=== PATIENT | female | born 1990 | race African-American/Black ===

== ENCOUNTER 2016-06-28 11:33 | Emergency (ER) | payer OTHER ==
[2016-06-28] MEDS ORDERED: Fentanyl 100 MCG/2 ML VIAL ONE (12:35)
--- NOTE | 2016-06-28 12:41 | RAD ---
PORTABLE CHEST: History: Chest pain. Comparison: 06-06-16 FINDINGS: There continues to be some hazy opacity in the left lung base although this is improved when compare d to the 06-06-16 exam. Right lung remains clear. Mediport catheter remains in place. IMPRESSION: Some residual hazy opacity in the left lung base, improved when compared to the prior study. POS: [facility]
[2016-06-28 12:55] LABS: ALT (SGPT) 11 U/L (0-55); AST (SGOT) 15 U/L (5-34); Alkaline Phosphatase 62 U/L (40-150); Anion Gap 18 mmol/L (10-20); BUN (Urea Nitrogen) 5 mg/dL (7.0-18.7); Bilirubin, Total 1.8 mg/dL (0.2-1.2); Calc. Creatinine Clearance 0 mL/min (70-130); Calcium 9.4 mg/dL (7.8-10.44); Carbon Dioxide 19 mmol/L (22-29); Chloride 108 mmol/L (98-107); Estimated GFR-MDRD Greater than 90; Globulin 4.2 g/dL (2.4-3.5); Hematocrit 30.4 % (36.0-47.0); Mean Platelet Volume 6.2 fL (7.4-10.4); Protein, Total 8.3 g/dL (6.0-8.3); Red Blood Cell (RBC) Count 4.24 mill/uL (4.20-5.40)
[2016-06-28] MEDS ORDERED: diphenhydrAMINE HCl 50 MG/ML 1 ML VIAL ONE (12:55)
[2016-06-28 12:58] LABS: Troponin I Less than 0.010 ng/mL (< 0.028)
[2016-06-28 13:05] LABS: White Blood Cell (WBC) Count 9.8 thou/uL (4.8-10.8)
[2016-06-28 13:20] LABS: Anisocytosis MODERATE=16-30 cells (100X) (0-5/hpf); Hypochromia MARKED = >30 cells (100X) (0-5/hpf); Microcytosis SLIGHT = 6-15 cells (100X) (0-5/hpf); Neutrophil 68 % (42-75); Nucleated RBC 10 % (0); Poikilocytosis MODERATE=16-30 cells (100X) (0-5/hpf); Target Cells MARKED = >16 cells (100X) (0-1/hpf)
== END 2016-06-28 13:44 | disposition home or self-care (01) ==
LOC: NAV ERS 11:33
DX: R07.81 Pleurodynia (principal)
CPT/HCPCS: 36415; 71010; 80053; 82553; 84484; 85025; 85379; 93005; 96361; 96374; 96375; J1200; J3010